=== PATIENT | female | born 1985 | race Hispanic/Latino ===

== ENCOUNTER 2017-12-11 10:02 | Emergency (ER) | payer OTHER ==
[2017-12-11 10:09] VITALS: BP 109/73
[2017-12-11] MEDS ORDERED: TYLENOL PO ONE (10:41)
[2017-12-11 11:04] LABS: HCG Qualitative,Urine Negative (Negative)
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
== END 2017-12-11 13:28 | disposition home or self-care (01) ==
LOC: ED 10:02
DX: S16.1XXA Strain of muscle, fascia and tendon at neck level, initial encounter (principal); S39.012A Strain of muscle, fascia and tendon of lower back, initial encounter; S89.92XA Unspecified injury of left lower leg, initial encounter; F41.9 Anxiety disorder, unspecified; F17.200 Nicotine dependence, unspecified, uncomplicated; Z88.8 Allergy status to other drugs, medicaments and biological substances; V43 Car occupant injured in collision with car, pick-up truck or van; Y93.89 Activity, other specified; Y99.8 Other external cause status; Y92.488 Other paved roadways as the place of occurrence of the external cause
CPT/HCPCS: 72040; 72100; 81025

== ENCOUNTER 2021-06-25 22:30 | Emergency (ER) | payer SELFPAY ==
[2021-06-25 22:42] VITALS: BP 105/68
[2021-06-25 23:56] LABS: Bilirubin,Urine NEG (Negative); Blood,Urine NEG (Negative); Color,Urine Yellow (Yellow); Protein,Urine <15 mg/dL mg/dL (Negative)
[2021-06-26 00:07] LABS: Basophils # (Auto) 0.1 K/mm3 (0.0-0.1); Basophils % (Auto) 0.8 % (0.0-1.8); Eosinophils # (Auto) 0.1 K/mm3 (0.0-0.4); Hematocrit 37.9 % (30.3-42.9); Hemoglobin 12.6 gm/dl (10.1-14.3); Lymphocytes # (Auto) 2.2 K/mm3 (1.2-5.4); Lymphocytes % (Auto) 26.9 % (13.4-35.0); Mean Corpuscular HGB Conc 33 % (30-34); Mean Corpuscular Volume 94 fl (79-97); Monocytes # (Auto) 0.7 K/mm3 (0.0-0.8); Monocytes % (Auto) 8.3 % (0.0-7.3); Platelet Count 195 K/mm3 (140-440); Red Blood Count 4.02 M/mm3 (3.65-5.03); Red Cell Distribution Width 14.2 % (13.2-15.2)
[2021-06-26 00:10] LABS: HCG Qualitative,Urine Negative (Negative)
[2021-06-26 00:11] LABS: RBC,Urine < 1.0 /HPF (0.0-6.0); WBC,Urine < 1.0 /HPF (0.0-6.0)
[2021-06-26 00:13] LABS: Blood Urea Nitrogen 4 mg/dL (7-17); Calcium 9.3 mg/dL (8.4-10.2); Hemolysis Index 21
[2021-06-26 00:15] LABS: BUN/Creatinine Ratio 7
--- NOTE | 2021-06-26 02:54 | Ultrasound Report ---
ULTRASOUND PELVIS INDICATION / CLINICAL INFORMATION: rule out POC. TECHNIQUE: Transabdominal. Duplex Color Doppler used: Yes. COMPARISON: None available FINDINGS: UTERUS: The uterus is of normal size. No focal uterine mass. Endometrium is of normal thickness measu ring 8 mm. No vascularity associated with the endometrium or surrounding uterine parenchyma. RIGHT ADNEXA: Not visualized LEFT ADNEXA: Not visualized FREE FLUID: None. ADDITIONAL FINDINGS: None. IMPRESSION: 1. The uterus has a normal sonographic appearance. Endometrium is of normal thickness and homogeneous appearance. There is no sonographic finding to suggest retained products of conception. Signer Name: Wanda Gomez MD Signed: 06/26/2021 2:50 AM Workstation Name: [id number]
--- NOTE | 2021-06-26 02:57 | Emergency Department Report ---
ED Female HPI - General Chief complaint: Abdominal Pain Stated complaint: ABD PAIN MISSCARRIGE Time Seen by Provider: 06/25/21 22:50 Source: patient Mode of arrival: Ambulatory Limitations: No Limitations - History of Present Illness Initial comments: Pt states she had a miscarriage last week and thought she passed everything. Pt c/o abd pain and slight vaginal bleeding x4 days. Pt states the pain is getting worse. MD Complaint: vaginal bleeding -: Gradual, hour(s) Radiation: non-radiating Severity scale (0 -10): 2 Quality: cramping Consistency: intermittent Improves with: none Worsens with: none Associated Symptoms: vaginal bleeding - Related Data Previous Rx's Medication Instructions Recorded Last Taken Type Naproxen [Naprosyn] 375 mg PO BID #14 tablet 12/11/17 Unknown Rx Allergies Allergy/AdvReac Type Severity Reaction Status Date / Time tramadol AdvReac Headache Verified 06/25/21 22:43 ED Review of Systems ROS: Stated complaint: ABD PAIN MISSCARRIGE Other details as noted in HPI Constitutional: denies: chills, fever Eyes: denies: eye pain, eye discharge, vision change ENT: denies: ear pain, throat pain Respiratory: denies: cough, shortness of breath, wheezing Cardiovascular: denies: chest pain, palpitations Endocrine: no symptoms reported Gastrointestinal: denies: abdominal pain, nausea, diarrhea Genitourinary: denies: urgency, dysuria, discharge Musculoskeletal: denies: back pain, joint swelling, arthralgia Skin: denies: rash, lesions Neurological: denies: headache, weakness, paresthesias Psychiatric: denies: anxiety, depression Hematological/Lymphatic: denies: easy bleeding, easy bruising ED Past Medical Hx - Past Medical History Previous Medical History?: No Hx Psychiatric Treatment: Yes Additional medical history: anxiety - Surgical History Additional Surgical History: - Social History Smoking Status: Current Every Day Smoker Substance Use Type: None - Medications Home Medications: Home Medications Medication Instructions Recorded Confirmed Last Taken Type Naproxen [Naprosyn] 375 mg PO BID #14 tablet 12/11/17 Unknown Rx ED Physical Exam - General Limitations: No Limitations General appearance: alert, in no apparent distress - Head Head exam: Present: atraumatic, normocephalic - Eye Eye exam: Present: normal appearance - ENT ENT exam: Present: mucous membranes moist - Neck Neck exam: Present: normal inspection - Respiratory Respiratory exam: Present: normal lung sounds bilaterally. Absent: respiratory distress - Cardiovascular Cardiovascular Exam: Present: regular rate, normal rhythm. Absent: systolic murmur, diastolic murmur, rubs, gallop - GI/Abdominal GI/Abdominal exam: Present: soft, normal bowel sounds - Extremities Exam Extremities exam: Present: normal inspection - Back Exam Back exam: Present: normal inspection - Neurological Exam Neurological exam: Present: alert, oriented X3 - Psychiatric Psychiatric exam: Present: normal affect, normal mood - Skin Skin exam: Present: warm, dry, intact, normal color. Absent: rash ED Course Vital Signs 06/25/21 22:41 Temperature 98.3 F Pulse Rate 94 H Respiratory 18 Rate Blood Pressure 105/68 O2 Sat by Pulse 98 Oximetry - Reevaluation(s) Reevaluation #1: 06/26/21 02:56 vss , no bleeding , H.H stable , US showed no RPOC ED Medical Decision Making - Lab Data Result diagrams: 06/25/21 23:45 06/25/21 23:45 Critical care attestation.: If time is entered above; I have spent that time in minutes in the direct care of this critically ill patient, excluding procedure time. ED Disposition Clinical Impression: Complete Disposition: 01 HOME / SELF CARE / HOMELESS Is pt being admited?: No Does the pt Need Aspirin: No Condition: Stable Instructions: Abdominal Pain (ED), Miscarriage, [id number], Miscarriage Referrals: PRIMARY CARE, [Primary Care Provider] - 3-5 Days
== END 2021-06-26 03:05 | disposition home or self-care (01) ==
LOC: ED 22:30
DX: O03.9 Complete or unspecified spontaneous abortion without complication (principal); F41.9 Anxiety disorder, unspecified; F17.200 Nicotine dependence, unspecified, uncomplicated; Z79.899 Other long term (current) drug therapy; Z98.890 Other specified postprocedural states
CPT/HCPCS: 36415; 76857; 80048; 81001; 81025; 83690; 84702; 85025; 99284